=== PATIENT | female | born 1990 | race African-American/Black ===

== ENCOUNTER 2018-04-04 20:22 | Emergency (ER) | payer OTHER ==
--- NOTE | 2018-04-04 20:45 | ED Physician Documentation ---
PD HPI FEMALE - Stated complaint Stated Complaint: 9WK PREG/FEM - Chief complaint Chief Complaint: Abd Pain - History obtained from History obtained from: Patient - History of Present Illness Timing - onset: Today ( at 9 weeks gestation, she is sure of her dates who had clear fluid loss and then several episodes of vaginal bleeding tonight. No cramping. She does not know her blood type.) Review of Systems Constitutional: reports: Reviewed and negative Cardiac: reports: Reviewed and negative Respiratory: reports: Reviewed and negative PD PAST MEDICAL HISTORY - Past Medical History Past Medical History: No - Present Medications Home Medications: Ambulatory Orders Medication Instructions Recorded Confirmed Fluconazole [Diflucan] 150 mg PO ONCE #1 tablet 04/07/16 Lidocaine Ointment 5% [Xylocaine 1 applic TOP QID PRN #30 g 04/07/16 Ointment 5%] Nystatin/Triamcin 1 applic TP BID #30 oint...g. 04/07/16 [Nystatin-Triamcinolone Ointm] Pnv with Ca,No.72/Iron/FA 1 tab ORAL DAILY 04/07/16 04/07/16 [ Plus Tablet] Pyridoxine HCl [Vitamin B-6] 1 tab ORAL DAILY 04/07/16 04/07/16 - Allergies Allergies/Adverse Reactions: Allergies Allergy/AdvReac Type Severity Reaction Status Date / Time No Known Drug Allergies Allergy Verified 04/04/18 20:33 - Social History Does the pt smoke?: No Smoking Status: Never smoker Does the pt drink ETOH?: No Does the pt have substance abuse?: No - Immunizations Immunizations are current?: Yes PD ED PE NORMAL - Vitals Vital signs reviewed: Yes - General General: Alert and oriented X 3, No acute distress - Abdomen Abdomen: Normal bowel sounds, Soft, Non tender - Female Female : Other (On bedside ultrasound I do not see a live IUP.) - Neuro Neuro: Alert and oriented X 3, Normal speech Results - Vitals Vitals: Vital Signs - 24 hr 04/04/18 04/04/18 20:31 22:06 Temperature 37.0 C 36.7 C Heart Rate 82 70 Respiratory 17 18 Rate Blood Pressure 135/57 H 122/47 L O2 Saturation 100 99 Oxygen O2 Source Room air - Labs Labs: Laboratory Tests 04/04/18 04/04/18 20:50 20:50 HCG, Quant 02914.00 Blood Type A POSITIVE - Rads (name of study) OB Sono Radiology: EMP read contemporaneously, See rad report (suggestive of missed AB/ IUFD) PD MEDICAL DECISION MAKING - ED course ED course: Pt with likely AB/IUFD tonight. Counselled on this and followup. - Sepsis Event Vital Signs: Vital Signs - 24 hr 04/04/18 04/04/18 20:31 22:06 Temperature 37.0 C 36.7 C Heart Rate 82 70 Respiratory 17 18 Rate Blood Pressure 135/57 H 122/47 L O2 Saturation 100 99 Oxygen O2 Source Room air Departure - Departure Disposition: 01 Home, Self Care Clinical Impression: Incomplete miscarriage with blood clot Condition: Good Record reviewed to determine appropriate education?: Yes Instructions: ED Miscarriage Incom Comments: Follow-up with your OB on Saturday if not better, return if worsening or if you run a fever. Discharge Date/Time: 04/04/18 22:21
[2018-04-04 22:06] VITALS: BP 122/47
--- NOTE | 2018-04-04 22:31 | Ultrasound Report ---
Procedure Date: 04/04/2018 Accession Number: [id number] / [id number] Procedure: US - OB Transvaginal CPT Code: FULL RESULT: See report for first trimester OB ultrasound.
--- NOTE | 2018-04-04 22:31 | Ultrasound Report ---
Procedure Date: 04/04/2018 Accession Number: [id number] / [id number] Procedure: US - OB First Trimester CPT Code: FULL RESULT: EXAM: FIRST TRIMESTER OBSTETRIC ULTRASOUND (Less than 11 weeks) EXAM DATE: 04/04/2018 09:28 PM. CLINICAL HISTORY: Vaginal bleeding LMP: 02/04/2018. COMPARISONS: None. TECHNIQUE: Transabdominal and transvaginal ultrasound examination with static image documentation. ASSESSMENT: Gestational Sac: Likely single gestational sac within the lower uterine segment. Mean gestational sac diameter: 13 mm = 5 weeks 3 days. Possible Embryo: CRL (crown-rump length) 4 mm = 6 weeks 0 days. Cardiac activity: Absent Yolk sac: Not seen. Amniotic fluid: Not accurately assessed at this gestational age. Early placenta: Not visible at this gestational age. Other: No perigestational fluid collection demonstrated. MATERNAL STRUCTURES: Uterus: Anteverted/Retroverted. Unremarkable. Cervix: Closed. Right Ovary/Adnexa: Unremarkable. The ovary measures 2.7 x 2.8 x 2.8 cm, volume 11 cc. Left Ovary/Adnexa: Unremarkable. The ovary measures 2.7 x 2.3 x 3.4 cm, volume 11 cc. Free Fluid: Small volume. Other: None. IMPRESSION: Sonographic findings suggestive of spontaneous . There is a small cystic focus which probably represents a gestational sac within lower uterine segment. There is a likely 0.4 cm embryo with no heart tones. No suspicious adnexal abnormalities are seen. RADIA
== END 2018-04-04 22:21 | disposition home or self-care (01) ==
LOC: ED 20:22
DX: O03.4 Incomplete spontaneous abortion without complication (principal)
CPT/HCPCS: 36415; 76801; 76817; 84702; 86900; 86901; 99283

== ENCOUNTER 2018-11-02 16:33 | Emergency (ER) | payer OTHER ==
--- NOTE | 2018-11-02 18:44 | ED Physician Documentation ---
PD HPI URI - Stated complaint Stated Complaint: 20 WK PREG/SORE THROAT - Chief complaint Chief Complaint: Heent - History obtained from History obtained from: Patient - History of Present Illness Timing - onset: How many days ago (2-3) Timing duration: Days Timing details: Gradual onset Associated symptoms: Fever, Sore throat, Swollen nodes. No: Nasal congestion, Rhinorrhea, Dry cough, NVD Contributing factors: No: Sick contact Review of Systems Constitutional: reports: Fever, Chills Nose: denies: Rhinorrhea / runny nose, Congestion Throat: reports: Oral lesions / sores, Sore throat, Swollen tonsils. denies: Dental pain / toothache Respiratory: denies: Cough PD PAST MEDICAL HISTORY - Past Medical History Past Medical History: Yes Derm: Eczema - Past Surgical History Past Surgical History: Yes /CRISIS WORKER: section - Present Medications Home Medications: Ambulatory Orders Medication Instructions Recorded Confirmed Pnv,Calcium 72/Iron/Folic Acid 1 tab ORAL DAILY 04/07/16 04/07/16 [ Plus Tablet] Cephalexin [Keflex] 500 mg PO TID #18 capsule 11/02/18 Dexamethasone [Decadron] 4 mg PO DAILY #5 tablet 11/02/18 - Allergies Allergies/Adverse Reactions: Allergies Allergy/AdvReac Type Severity Reaction Status Date / Time No Known Drug Allergies Allergy Verified 11/02/18 18:32 - Social History Does the pt smoke?: No Smoking Status: Never smoker Does the pt drink ETOH?: No Does the pt have substance abuse?: No - Immunizations Immunizations are current?: Yes PD ED PE NORMAL - Vitals Vital signs reviewed: Yes - General General: Alert and oriented X 3, No acute distress, Well developed/nourished - HEENT HEENT: No: Pharynx benign (tonsils swollen with exudate. Single ulcerative gum sore anterior inside lower lip. ) - Neck Neck: Supple, no meningeal sign, Other (anterior adenopathy.) - Cardiac Cardiac: RRR, No murmur - Respiratory Respiratory: Clear bilaterally - Abdomen Abdomen: Soft, Non tender - Derm Derm: Normal color, Warm and dry, No rash Results - Vitals Vitals: Oxygen O2 Source Room air - Labs Labs: Microbiology 11/02/18 16:45 Group A Strep Throat Culture - Final Throat Beta Hemolytic Strep Group C Laboratory Tests 11/02/18 16:45 Group A Strep Rapid Negative PD MEDICAL DECISION MAKING - ED course Complexity details: considered differential (clinically apparent strep tonsillitis. ), d/w patient Departure - Departure Disposition: 01 Home, Self Care Clinical Impression: Acute tonsillitis Qualifiers: Pharyngitis/tonsillitis etiology: unspecified etiology Qualified Code(s): J03.90 - Acute tonsillitis, unspecified Record reviewed to determine appropriate education?: Yes Prescriptions: Cephalexin [Keflex] 500 mg PO TID #18 capsule Dexamethasone [Decadron] 4 mg PO DAILY #5 tablet Comments: The rapid strep test is negative but it does look suspicious for bacterial infection so we will treated with cephalexin 3 times a day for the next 6 days at least for the next 2 days until the last throat culture is resulted. If that is negative as well then we could stop the antibiotics. We did do a viral culture as well which will result in a couple of days to see if it looks herpetic (like a cold sore). Use Decadron steroid anti-inflammatory to help reduce some of the irritation of it. He can use Benadryl liquid 1-2 teaspoons swish around and swallow to help with the discomfort in the throat. Tylenol if needed for pains. Recheck if worsening over the next couple of days otherwise follow-up with your primary care. Discharge Date/Time: 11/02/18 19:28
[2018-11-02] MEDS ORDERED: DEXAMETHASONE 10 MG/ML VIAL PO STA (18:54)
[2018-11-02] MEDS ORDERED: diphenhydrAMINE ELIXIR 25 MG/10 ML UDC PO STA (18:54)
[2018-11-02] MEDS ORDERED: cephALEXin 250 MG CAPSULE PO STA (18:54)
[2018-11-02] MEDS ORDERED: ACETAMINOPHEN 325 MG TABLET PO STA (18:55)
[2018-11-02 19:28] VITALS: BP 139/79
== END 2018-11-02 19:28 | disposition home or self-care (01) ==
LOC: ED 16:33
DX: O99.511 Diseases of the respiratory system complicating pregnancy, first trimester (principal); J03.90 Acute tonsillitis, unspecified; K13.79 Other lesions of oral mucosa; Z3A.20 20 weeks gestation of pregnancy
CPT/HCPCS: 87070; 87077; 87430; 99283; A9270

== ENCOUNTER 2018-11-19 21:01 | Emergency (ER) | payer OTHER ==
--- NOTE | 2018-11-19 22:09 | ED Physician Documentation ---
History of Present Illness - Stated complaint Stated Complaint: EAR PX - Chief complaint Chief Complaint: Heent - History obtained from History obtained from: Patient - History of Present Illness Timing: How many days ago (3) Pain level max: 5 Pain level now: 4 Improved by: nothing Worsened by: palpation - Additonal information Additional information: Left ear pain and swelling for the past 2-3 days. Denies any trauma. Denies any injury. States increasing redness and swelling. No fevers. No recent illness. She is 23 weeks . Only on vitamins. Review of Systems Constitutional: denies: Fever, Chills : reports: Now EGA (23 weeks) Skin: denies: Rash PD PAST MEDICAL HISTORY - Past Medical History Past Medical History: Yes Derm: Eczema - Past Surgical History Past Surgical History: Yes /AGRICULTURAL ADVISER: section - Present Medications Home Medications: Ambulatory Orders Medication Instructions Recorded Confirmed Pnv,Calcium 72/Iron/Folic Acid 1 tab ORAL DAILY 04/07/16 11/19/18 [ Plus Tablet] - Allergies Allergies/Adverse Reactions: Allergies Allergy/AdvReac Type Severity Reaction Status Date / Time No Known Drug Allergies Allergy Verified 11/19/18 21:12 - Social History Does the pt smoke?: No Smoking Status: Never smoker Does the pt drink ETOH?: No Does the pt have substance abuse?: No - Immunizations Immunizations are current?: Yes PD ED PE NORMAL - Vitals Vital signs reviewed: Yes - General General: Alert and oriented X 3, No acute distress - HEENT HEENT: Moist mucous membranes, Other (Tympanic membranes are normal bilaterally. The ear canals are normal bilaterally. There is mild swelling and erythema to the naila area of the left ear.) - Neck Neck: Supple, no meningeal sign - Cardiac Cardiac: RRR - Respiratory Respiratory: No respiratory distress, Clear bilaterally - Abdomen Abdomen: Soft, Non tender, Non distended - Derm Derm: Warm and dry - Neuro Neuro: Alert and oriented X 3 Results - Vitals Vitals: Vital Signs - 24 hr 11/19/18 11/19/18 21:10 22:21 Temperature 36.6 C 36.3 C L Heart Rate 75 70 Respiratory 16 16 Rate Blood Pressure 131/60 H 125/62 O2 Saturation 100 98 Oxygen O2 Source Room air PD MEDICAL DECISION MAKING - ED course Complexity details: considered differential, d/w patient, d/w telesales consultant ED course: 28-year-old female presents to the emergency department with concern for left ear early perichondritis. Discussed the case with Dr. Kincaid, ENT and he will see her in the office today to determine if antibiotics are needed or not. Will hold antibiotics as she is 23 weeks currently And would need Pseudomonas coverage which would mean that she would need to be placed on a fluoroquinolone. Patient counseled regarding signs and symptoms for which I believe and urgent re-evaluation would be necessary. Patient with good understanding of and agreement to plan and is comfortable going home at this time This document was made in part using voice recognition software. While efforts are made to proofread this document, sound alike and grammatical errors may occur. Departure - Departure Disposition: 01 Home, Self Care Clinical Impression: Perichondritis Condition: Good Instructions: [facility] Follow-Up: Rivera Kincaid MD [Physician No Access] - Tomorrow Comments: I spoke with Dr. Kincaid from [facility]. He wants to see you in the office tomorrow. When you call the office in the morning, tell them that I spoke with Dr. Kincaid and he wanted you seen on 11/20/18. You can see him or 1 of his partners. We want to ensure that you do not have an infection called perichondritis, which may need certain antibiotics which we want to make sure safe for . Discharge Date/Time: 11/19/18 22:25
[2018-11-19] MEDS ORDERED: ACETAMINOPHEN 325 MG TABLET PO STA (22:17)
[2018-11-19 22:23] VITALS: BP 125/62
== END 2018-11-19 22:25 | disposition home or self-care (01) ==
LOC: ED 21:01
DX: O26.892 Other specified pregnancy related conditions, second trimester (principal); H61.002 Unspecified perichondritis of left external ear; Z3A.23 23 weeks gestation of pregnancy
CPT/HCPCS: 99283; 99284; A9270

== ENCOUNTER 2019-01-23 11:20 | Outpatient (CLI) | payer OTHER | END 2019-01-23 11:21 | disposition home or self-care (01) | LOC: LAB 11:20 | PROVIDERS: ATTEND Obstetrics & Gynecology | DX: Z36.8A Encounter for antenatal screening for other genetic defects (principal) | CPT/HCPCS: 36415; 81220; 81243; 81329; 81599; 83021; 85014; 85018; 85041 ==

== ENCOUNTER 2019-02-13 11:14 | Outpatient (CLI) | payer OTHER | END 2019-02-13 23:59 | disposition home or self-care (01) | LOC: LAB.R 11:14 | PROVIDERS: ATTEND Obstetrics & Gynecology | DX: Z34.83 Encounter for supervision of other normal pregnancy, third trimester (principal) | CPT/HCPCS: 87797 ==

== ENCOUNTER 2019-02-20 11:19 | Outpatient (CLI) | payer OTHER ==
--- NOTE | 2019-02-20 16:54 | Ultrasound Report ---
Reason: OBESITY COMPLICATING ,CHILDBIRTH,OR THE P Procedure Date: 02/20/2019 Accession Number: [id number] / [id number] Procedure: US - OB F/U or Repeat CPT Code: FULL RESULT: EXAM: FOLLOW-UP OBSTETRICAL ULTRASOUND EXAM DATE: 02/20/2019 12:19 PM. CLINICAL HISTORY: OBESITY COMPLICATING ,CHILDBIRTH,OR THE P. COMPARISON: None. TECHNIQUE: Real-time sonographic evaluation of the fetus performed by the market master. Multiple underwriting sales representative static images were saved for review. DATING: Established EGA 36 weeks 4 days with JULIANNE 03/16/2019 based on working due date. EGA 36 weeks 3 days with JULIANNE 03/17/2019 based on the current ultrasound. GENERAL EVALUATION [place] . Cardiac activity: 165 bpm. movement: Visualized. Presentation: Vertex Placenta: Anterior position. Amniotic fluid: Normal. RODGER 13 cm. MVP 3.9 cm. BIOMETRY Bi-Parietal Diameter (BPD): 8.9 cm, 36 weeks 3 days Head Circumference (HC): 33.1 cm, 37 weeks 5 days Abdominal Circumference (AC): 31.7 cm, 35 weeks 4 days Femur Length (FL): 7.0 cm, 36 weeks 0 days Estimated Weight: 2828 g, 39th Percentile for 36 weeks 4 days. IMPRESSION: 1. [place]ard live intrauterine with gestational age 36 weeks 4 days based on working obstetric due date. 2. Estimated weight is within expected limits for assigned dating. DOM
== END 2019-02-20 11:20 | disposition home or self-care (01) ==
LOC: DI 11:19
PROVIDERS: ATTEND Obstetrics & Gynecology
DX: O99.210 Obesity complicating pregnancy, unspecified trimester (principal); O99.213 Obesity complicating pregnancy, third trimester; Z3A.36 36 weeks gestation of pregnancy; O13.3 Gestational [pregnancy-induced] hypertension without significant proteinuria, third trimester
CPT/HCPCS: 36415; 76816; 82565; 82570; 84156; 84450; 85027

== ENCOUNTER 2019-02-20 12:05 | Outpatient (CLI) | payer OTHER ==
[2019-02-20 12:29] LABS: HGB - HEMOGLOBIN 12.3 g/dL (12.0-16.0); MEAN CORPUSCULAR HEMOGLOBIN 28.4 pg (27.0-31.0); MEAN CORPUSCULAR HGB CONC 34.5 g/dL (32.0-36.0); MEAN CORPUSCULAR VOLUME 82.4 fL (81.0-99.0); MEAN PLATELET VOLUME 9.8 fL (7.9-10.8); RED BLOOD COUNT 4.33 10^6/uL (4.20-5.40); RED CELL DISTRIBUTION WIDTH 12.4 % (12.0-15.0); WHITE BLOOD COUNT 8.3 x10^3/uL (4.8-10.8)
[2019-02-20 12:41] LABS: CREATININE 0.7 mg/dL (0.4-1.0)
[2019-02-20 13:51] LABS: CREATININE,URINE 138.9 mg/dL; PROTEIN/CREATININE RATIO,URINE 0.1 (<=0.2)
== END 2019-02-20 12:06 | disposition home or self-care (01) ==
LOC: LAB 12:05
PROVIDERS: ATTEND Obstetrics & Gynecology
DX: O13.3 Gestational [pregnancy-induced] hypertension without significant proteinuria, third trimester (principal)
CPT/HCPCS: 36415; 82565; 82570; 84156; 84450; 85027

== ENCOUNTER 2019-02-27 12:37 | Outpatient (CLI) | payer OTHER ==
[2019-02-27 13:18] VITALS: BP 131/85
--- NOTE | 2019-02-27 17:44 | PROCEDURE REPORT ---
- HPI Diagnosis/Indication for NST: Other (Difficult to assess heart tones in clinic) Current EDU 03/16/19 Gestation 37 Weeks and 4 Days 3 Para 1 Vital Signs Temperature 98.1 F 02/27/19 13:17 Heart Rate 97 02/27/19 13:17 Respiratory Rate 18 02/27/19 13:17 Blood Pressure 131/85 H 02/27/19 13:17 O2 Saturation 99 02/27/19 13:17 Temperature 98.1 F 02/27/19 13:17 Heart Rate 97 02/27/19 13:17 Respiratory Rate 18 02/27/19 13:17 Blood Pressure 131/85 H 02/27/19 13:17 O2 Saturation 99 02/27/19 13:17 - NST Procedure NST Procedure Start Date 02/27/19 Start Time 12:37 Stop Time 13:02 Vibroacoustic Stimulation Used No Patient States Movement Yes Mod vara 15x15 accels no decels TOCO quiet Cat I tracing - Results and Plan Findings/Impression: Cat I tracing BPs wnl Warning signs reviewed FU in clinic in one week
== END 2019-02-27 13:10 | disposition home or self-care (01) ==
LOC: WFO 12:37 → FBP 12:38 → WFO 13:10
PROVIDERS: ATTEND Obstetrics & Gynecology
DX: Z34.83 Encounter for supervision of other normal pregnancy, third trimester (principal); Z3A.37 37 weeks gestation of pregnancy
CPT/HCPCS: 59025

== ENCOUNTER 2019-03-09 15:00 | Outpatient (CLI) | payer OTHER ==
[2019-03-09 18:39] LABS: BASOPHILS % (AUTO) 0.3 %; EOSINOPHILS # (AUTO) 0.1 10^3/uL (0.0-0.7); EOSINOPHILS % (AUTO) 1.5 %; HGB - HEMOGLOBIN 11.8 g/dL (12.0-16.0); LYMPHOCYTES # (AUTO) 1.6 10^3/uL (1.5-3.5); LYMPHOCYTES % (AUTO) 21.7 %; MEAN CORPUSCULAR HEMOGLOBIN 27.3 pg (27.0-31.0); MEAN CORPUSCULAR VOLUME 82.7 fL (81.0-99.0); MEAN PLATELET VOLUME 10.3 fL (7.9-10.8); MONOCYTES # (AUTO) 0.7 10^3/uL (0.0-1.0); MONOCYTES % (AUTO) 9.6 %; NEUTROPHILS # (AUTO) 4.8 10^3/uL (1.5-6.6); NEUTROPHILS % (AUTO) 66.5 %; PLT - PLATELET COUNT 217 10^3/uL (130-450); RED BLOOD COUNT 4.33 10^6/uL (4.20-5.40); RED CELL DISTRIBUTION WIDTH 13.2 % (12.0-15.0); WHITE BLOOD COUNT 7.2 x10^3/uL (4.8-10.8)
== END 2019-03-09 23:59 | disposition home or self-care (01) ==
LOC: LAB.N 15:00
PROVIDERS: ATTEND Obstetrics & Gynecology
DX: Z01.818 Encounter for other preprocedural examination (principal); O34.211 Maternal care for low transverse scar from previous cesarean delivery
CPT/HCPCS: 36415; 85025; 86850; 86900; 86901

== ENCOUNTER 2019-03-11 05:30 | Inpatient (IN) | payer OTHER ==
[2019-03-11] MEDS ORDERED: LACTATED RINGERS 1,000 ML IV ONE ×2 (05:50→07:30)
[2019-03-11] MEDS ORDERED: SODIUM CHLORIDE FLUSH 0.9% 10 ML SYRINGE ONE (05:50)
[2019-03-11] MEDS ORDERED: LACTATED RINGERS 1,000 ML IV SCH (07:00)
--- NOTE | 2019-03-11 07:13 | ANESTHESIA ---
Pre-Anesthesia VS, & Labs - Diagnosis previous c/s - Procedure repeat c/s Height 5 ft 6 in Weight (kg) 121.109 kg Body Mass Index 37.5 - NPO >8 hours - Is Patient ?: Yes - Lab Results Lab results reviewed: Yes Home Medications and Allergies Active Medications Lactated Ringer's (Lr) 1,000 mls @ 125 mls/hr IV .Q8H ARISTIDES Pnv,Calcium 72/Iron/Folic Acid [ Plus Tablet] 1 tab ORAL DAILY 04/07/16 Allergies/Adverse Reactions: Allergies Allergy/AdvReac Type Severity Reaction Status Date / Time No Known Drug Allergies Allergy Verified 11/19/18 21:12 Anes History & Medical History - Anesthetic History Family history of Anesthesia Complications: Denies Family history of Malignant Hyperthermia: Denies - Medical History Cardiovascular: reports: None Pulmonary: reports: None Gastrointestinal: reports: None Urinary: reports: None Neuro: reports: None Musculoskeletal: reports: None Endocrine/Autoimmune: reports: None Blood Disorders: reports: None Skin: reports: Eczema Smoking Status: Former smoker (quit 9 months ago) Psychosocial: reports: No issues indicated - Surgical History Gynecologic: section - Obstetrical History : 3 Parity: 1 Events: positive: None Exam General: Alert, Oriented x3, Cooperative, No acute distress Dental: WNL Mouth Openin Fingerbreadth Neck Mobility: Normal Mallampati classification: I Thyromental Distance: greater than 6 cm Respiratory: Lungs clear, Normal breath sounds, No respiratory distress, No accessory muscle use Cardiovascular: Regular rate, Normal S1, Normal S2, No murmurs Mental/Cognitive Status: Alert/Oriented X3, Normal for patient Plan Anesthesia Type: Spinal Consent for Procedure(s) Verified and Reviewed: Yes Code Status: Attempt Resuscitation ASA classification: 2-Mild systemic disease Is this case an emergency?: No
[2019-03-11] MEDS ORDERED: OXYTOCIN/SODIUM CHLORIDE 1,000 ML IV ONE (07:30)
--- NOTE | 2019-03-11 07:36 | HISTORY & PHYSICAL EXAMINATION ---
Admit History - Visit Reason Visit Reason: Other (Scheduled repeat ) - Care: positive: [facility] Risk/History: positive: None Complications This : positive: None Smoking Status: Former smoker (quit 9 months ago) - Other Maternal History Other Maternal History: 28 yo at 39w2d here for repeat LTCS No CTX/VB/LOF. Endorses FM Meds/Allgy - Home Medications Home Medications: Ambulatory Orders Medication Instructions Recorded Confirmed Pnv,Calcium 72/Iron/Folic Acid 1 tab ORAL DAILY 04/07/16 11/19/18 [ Plus Tablet] - Allergies Allergies/Adverse Reactions: Allergies Allergy/AdvReac Type Severity Reaction Status Date / Time No Known Drug Allergies Allergy Verified 11/19/18 21:12 Review of Systems - Other Findings Other Findings: As per HPI, remaining systems are negatve. Physical - Abdominal Exam Vital Signs: 82 131/85 Contraction Frequency (min/apart): none - Monitoring Heart Rate Baseline: 135 Strip Review: positive: Category I - Presentation Presentation: positive: Vertex - Other Notes Labor Progress Note/Additional Text: Presents for scheduled repeat at 39w2d No change in health hx since time of prior exam Consent obtained Cefazolin OCTOR
[2019-03-11] MEDS ORDERED: fentaNYL 100 MCG/2 ML VIAL IVP ONE (08:53)
[2019-03-11] MEDS ORDERED: ONDANSETRON 4 MG/2 ML VIAL IVP ONE (08:53)
[2019-03-11] MEDS ORDERED: PHENYLEPHRINE 10 MG/ML VIAL IV ONE (08:53)
[2019-03-11] MEDS ORDERED: KETOROLAC 30 MG/ML VIAL IVP ONE (08:53)
[2019-03-11] MEDS ORDERED: MORPHINE PF 5 MG/10 ML AMP EP ONE (08:53)
[2019-03-11] MEDS ORDERED: ceFAZolin 1 GM VIAL IV ONE (08:53)
[2019-03-11] MEDS ORDERED: ePHEDrine 50 MG/ML VIAL IVP ONE (08:53)
[2019-03-11] MEDS ORDERED: ACETAMINOPHEN 1,000 MG/100 ML 100 ML IV ONE (09:25)
--- NOTE | 2019-03-11 09:44 | OPERATIVE REPORT ---
Operative Report - General Admit Date: 03/11/19 Planned Procedure: Repeat low transverse Pre-Op Diagnosis: IUP at 39w2d, history of prior Procedure Performed: Repeat low transverse Post Op Diagnosis: same and delivery of term gestation - Procedure Note Primary Surgeon: Lara Serna MD Secondary Surgeon: Terrell Stahl MD Anesthesia Provider: Keysha Bravo CRNA Anesthesia Technique: Spinal Pathology: Placenta for routine discard IV Fluids (mL): 1,100 (see Anesthesia record) Estimated Blood Loss (mL): 500 Urine Output (mL): 500 Indications: Ms Alonzo is a 28 yo at 39w2d with a history of prior . She presents for elective repeat LTCS Findings: Female fetus in vertex position. Weight and Apgars pending. Normal uterus. Tubes and ovaries palpate normal. Complications: none - Other Other Information/Narrative: The patient was taken to the operating room where spinal anesthesia was administered without difficulty. The patient was prepped and draped in the usual sterile fashion in the dorsal supine position with a leftward tilt. A Pfannenstiel skin incision was made with the scalpel and carried through to the underlying layer of fascia using the Bovie. The left lateral aspect of the incision had an area of raised scar tissue that was dissected from the incision. The fascia was incised in the midline and extended laterally using Plummer scissors. Sherwin clamps were used to elevate the superior aspect of the fascial incision, which was elevated, and the underlying rectus muscles were dissected off bluntly and using Plummer scissors. Attention was then turned to the inferior aspect of the fascial incision, which in similar fashion was grasped with Sherwin clamps, elevated, and the underlying rectus muscles were dissected off bluntly and using the Bovie. The rectus muscles were dissected in the midline. The peritoneum was identified and entered bluntly; this incision was extended superiorly and inferiorly with good visualization of the bladder. The bladder blade was inserted. The vesicouterine peritoneum was identified. Bladder flap was not created. The lower uterine segment was incised in a transverse fashion using the scalpel and extended using manual traction. Clear fluid was noted. The infant was subsequently delivered using a Kiwi vacuum due to anteflexed head and difficulty in delivering the infant's head without the Kiwi. The cord was clamped and cut. The infant was subsequently handed to the awaiting nursery nurse. The placenta was delivered spontaneously intact with a three-vessel cord noted. The uterus was not exteriorized. It was cleared of all clots and debris. The uterine incision was repaired in 2 layers using 0- Vicryl in a runnng locked suture followed with an imbricating layer. Hemostasis was visualized. The tubes and ovaries were palpated. The paracolic gutters were cleared of clots and debris with irrigation and clearance with sloppy wet lap sponges. The uterine incision was reexamined and it was noted to be hemostatic. The peritoneum was closed wth a running suture usng 2-0 Vicryl. The rectus muscles were reapproximated in the midline using 2-0 Chromic using an interrupted figure of 8 sutures. The fascia was closed with 0 Vicryl suture x2, meeting in the midline. The subcutaneous layer was closed with 2-0 Chromic, and the skin was closed with running subcuticular suture using 4-0 Monocryl. . Sponge, lap, and instrument counts were correct x2. The patient was stable at the completion of the procedure and was subsequently transferred to the recovery room in stable condition. Dr. Stahl assisted with retraction, suturing, and closure of the fascial layer.
[2019-03-11] MEDS ORDERED: OXYTOCIN/DEXTROSE 5 % 30 UNIT/500 ML BAG IV PRN (10:04)
[2019-03-11] MEDS ORDERED: ONDANSETRON 4 MG/2 ML VIAL IVP PRN (10:04)
[2019-03-11] MEDS ORDERED: ONDANSETRON ODT 4 MG TABLET TL PRN (10:04)
[2019-03-11] MEDS ORDERED: SODIUM CHLORIDE FLUSH 0.9% 10 ML SYRINGE IVP PRN (10:04)
[2019-03-11] MEDS ORDERED: METHYLERGONOVINE 0.2 MG/ML AMP IM PRN (10:04)
[2019-03-11] MEDS ORDERED: CARBOPROST TROMETHAMINE 250 MCG/ML AMP IM ONE (10:04)
[2019-03-11] MEDS: ACETAMINOPHEN 500 MG TABLET PO SCH ×2 (11:27→18:51)
[2019-03-11] MEDS: LACTATED RINGERS 1,000 ML IV SCH ×2 (11:28→13:15)
[2019-03-11] MEDS: oxyCODONE 5 MG TABLET PO PRN ×3 (11:59→20:03)
[2019-03-11] MEDS: IBUPROFEN 600 MG TABLET PO SCH ×2 (15:03→22:07)
[2019-03-11] MEDS: SODIUM CHLORIDE FLUSH 0.9% 10 ML SYRINGE IVP SCH ×2 (16:42→22:18)
[2019-03-11] MEDS: SIMETHICONE CHEW 80 MG TABLET PO SCH ×2 (16:46→18:51)
[2019-03-11] MEDS: diphenhydrAMINE 25 MG CAPSULE PO PRN (20:03)
[2019-03-11] MEDS ORDERED: NALBUPHINE 10 MG/ML AMP IVP ONE (21:53)
[2019-03-11] MEDS: DOCUSATE SODIUM 100 MG CAPSULE PO SCH (22:07)
[2019-03-11] MEDS ORDERED: NALBUPHINE 10 MG/ML AMP ONE (22:36)
[2019-03-12] MEDS: oxyCODONE 5 MG TABLET PO PRN ×6 (00:45→22:10)
[2019-03-12] MEDS: diphenhydrAMINE 25 MG CAPSULE PO PRN (03:44)
[2019-03-12] MEDS: ACETAMINOPHEN 500 MG TABLET PO SCH ×3 (03:44→18:56)
[2019-03-12] MEDS: IBUPROFEN 600 MG TABLET PO SCH ×3 (04:23→18:57)
[2019-03-12 05:59] LABS: BASOPHILS % (AUTO) 0.3 %; EOSINOPHILS # (AUTO) 0.1 10^3/uL (0.0-0.7); EOSINOPHILS % (AUTO) 1.1 %; HGB - HEMOGLOBIN 10.3 g/dL (12.0-16.0); LYMPHOCYTES # (AUTO) 1.9 10^3/uL (1.5-3.5); LYMPHOCYTES % (AUTO) 16.7 %; MEAN CORPUSCULAR HEMOGLOBIN 27.7 pg (27.0-31.0); MEAN CORPUSCULAR HGB CONC 33.3 g/dL (32.0-36.0); MEAN CORPUSCULAR VOLUME 83.1 fL (81.0-99.0); MEAN PLATELET VOLUME 9.9 fL (7.9-10.8); MONOCYTES # (AUTO) 1.1 10^3/uL (0.0-1.0); MONOCYTES % (AUTO) 9.5 %; NEUTROPHILS # (AUTO) 8.2 10^3/uL (1.5-6.6); NEUTROPHILS % (AUTO) 71.9 %; PLT - PLATELET COUNT 191 10^3/uL (130-450); RED BLOOD COUNT 3.72 10^6/uL (4.20-5.40); RED CELL DISTRIBUTION WIDTH 12.9 % (12.0-15.0); WHITE BLOOD COUNT 11.4 x10^3/uL (4.8-10.8)
[2019-03-12] MEDS: SIMETHICONE CHEW 80 MG TABLET PO SCH ×3 (08:16→18:10)
[2019-03-12] MEDS: DOCUSATE SODIUM 100 MG CAPSULE PO SCH ×2 (08:16→20:53)
--- NOTE | 2019-03-12 12:35 | PROVIDER PROGRESS NOTE ---
Subjective - Prog Note Date Prog Note Date: 03/12/19 Prog Note Time: 09:30 - Subjective Pt reports feeling: Improved (Doing well. Up and ambulating. Tolerating po. Pain well managed. BF going well) Objective - Vital Signs/Intake & Output Vital Signs: Vital Signs x48h Temp Pulse Resp BP Pulse Ox 03/12/19 09:20 98.1 F 87 16 143/71 H 97 Intake & Output: Intake & Output 03/09/19 03/10/19 03/11/19 03/12/19 23:59 23:59 23:59 23:59 Intake Total 1850 Output Total 2795 2400 Balance -945 -2400 - Objective General Appearance: positive: No acute distress Respiratory: positive: Chest non-tender, No respiratory distress Cardiovascular: positive: Regular rate & rhythm Abdomen: positive: Non-tender, Other (Incision line CDI with steris in place FF below umbi) Skin: positive: Color nml Extremities: positive: Non-tender, Other (SCDs in place) Neurologic/Psychiatric: positive: Oriented x3 - Lab Results Fish Bones: 03/12/19 05:32 Other Labs: Lab Results x24hrs 03/12/19 Range/Units 05:32 WBC 11.4 H (4.8-10.8) x10^3/uL RBC 3.72 L (4.20-5.40) 10^6/uL Hgb 10.3 L (12.0-16.0) g/dL Hct 30.9 L (37.0-47.0) % MCV 83.1 (81.0-99.0) fL MCH 27.7 (27.0-31.0) pg MCHC 33.3 (32.0-36.0) g/dL RDW 12.9 (12.0-15.0) % Plt Count 191 (130-450) 10^3/uL MPV 9.9 (7.9-10.8) fL Neut # (Auto) 8.2 H (1.5-6.6) 10^3/uL Lymph # (Auto) 1.9 (1.5-3.5) 10^3/uL [place] # (Auto) 1.1 H (0.0-1.0) 10^3/uL Eos # (Auto) 0.1 (0.0-0.7) 10^3/uL Baso # (Auto) 0.0 (0.0-0.1) 10^3/uL Absolute Nucleated RBC 0.00 x10^3/uL Nucleated RBC % 0.0 /100WBC Assessment/Plan - Problem List (1) Delivery by section of full-term infant Impression: Doing well post op Up and ambulating Tolerating po Pain well managed Voiding Anticipate DC home tomorrow
[2019-03-13] MEDS: IBUPROFEN 600 MG TABLET PO SCH ×2 (00:56→06:53)
[2019-03-13] MEDS: ACETAMINOPHEN 500 MG TABLET PO SCH ×2 (02:34→12:08)
[2019-03-13] MEDS: oxyCODONE 5 MG TABLET PO PRN ×3 (02:34→12:08)
[2019-03-13] MEDS: SIMETHICONE CHEW 80 MG TABLET PO SCH (08:39)
[2019-03-13] MEDS: DOCUSATE SODIUM 100 MG CAPSULE PO SCH (08:39)
[2019-03-13 08:59] VITALS: BP 146/85
--- NOTE | 2019-03-13 11:38 | PROVIDER PROGRESS NOTE ---
Subjective - Prog Note Date Prog Note Date: 03/13/19 Prog Note Time: 11:34 - Subjective Subjective: Doing well. Up and ambulating. Tolerating po. Ambulating, voiding. Ready for discharge. Objective - Vital Signs/Intake & Output Vital Signs: Vital Signs x48h Temp Pulse Resp BP Pulse Ox 03/13/19 08:58 98.1 F 94 16 146/85 H 99 03/13/19 04:33 97.7 F 87 18 128/54 L 99 Intake & Output: Intake & Output 03/10/19 03/11/19 03/12/19 03/13/19 23:59 23:59 23:59 23:59 Intake Total 1850 1740 240 Output Total 2795 2400 Balance -945 -660 240 - Objective General Appearance: positive: No acute distress Eyes Bilateral: positive: Normal inspection Respiratory: positive: Chest non-tender, No respiratory distress Cardiovascular: positive: Regular rate & rhythm Abdomen: positive: Other (Incision CDI and intact. FF below umbi) Back: positive: Nml inspection Skin: positive: Color nml Extremities: positive: Non-tender Neurologic/Psychiatric: positive: Oriented x3 - Lab Results Fish Bones: 03/12/19 05:32 Assessment/Plan - Problem List (2) Delivery by section Impression: Meeting goals for discharge Discharge instructions given DC to home
--- NOTE | 2019-03-13 16:35 | DISCHARGE SUMMARY ---
"Discharge Summary Admit Date: 03/11/01 Discharge Date: 03/13/19 Discharging Provider: MD Kareem Code Status: Attempt Resuscitation Condition at Discharge: Good - DIAGNOSES Admission Diagnoses: IUP at 39w2d with history of prior Discharge Diagnoses with Status of Each Condition: Same and delivery of term gestation via - HPI History of Present Illness: Ms Alonzo is a 28 at 39w2d here for repeat low transverse . uncomlicated, patient known to carry sickle cell trait. No CTX/VB/LOF. - CONSULTS | PROCEDURES Procedures: Repeat low transverse - HOSPITAL COURSE Hospital Course: Ms Alonzo was admtted 03/11/19 for scheduled repeat low trasnverse . Procedure was well tolerated and without complication. Uncomplicated course. Meetng goals for discharge by POD#2 and discharged to home. - ALLERGIES Allergies/Adverse Reactions: Allergies Allergy/AdvReac Type Severity Reaction Status Date / Time No Known Drug Allergies Allergy Verified 11/19/18 21:12 - MEDICATIONS Home Medications: Ambulatory Orders Medication Instructions Recorded Confirmed Pnv,Calcium 72/Iron/Folic Acid 1 tab ORAL DAILY 04/07/16 11/19/18 [ Plus Tablet] - PHYSICAL EXAM AT DISCHARGE General Appearance: positive: No acute distress Eyes Bilateral: positive: Normal inspection Neck: positive: Nml inspection Respiratory: positive: Chest non-tender, No respiratory distress, Breath sounds nml Cardiovascular: positive: Regular rate & rhythm Abdomen: positive: Non-tender, Other (Incision line CDI with steristrips in place. FF below umbilicus) Extremities: positive: Non-tender, Nml appearance Neurologic/Psychiatric: positive: Oriented x3 - LABS Result Diagrams: 03/12/19 05:32 - FOLLOW UP Follow Up: FU in 1-2 weeks for incision check and 6 weeks for check Routine DC instructions given Discharge medications: Oxycodone 5 mg tablets #24 No RF Ibuprofen 600 mg po Q6H prn pain #90, 1 RF Acetaminophen 325 mg -650 mg po Q4H PRN pain, #90, 1 RF Docusate 100-200 mg po BID prn constipation - TIME SPENT Time Spent in Discharge (Minutes): 30"
== END 2019-03-13 12:30 | disposition home or self-care (01) | DRG 788 ==
LOC: FBP 05:30
PROVIDERS: ADMIT Obstetrics & Gynecology; ATTEND Obstetrics & Gynecology
PROC: 10D00Z1 Extraction of Products of Conception, Low, Open Approach (ICD-10-PCS; principal; 2019-03-11 07:30)
DX: O34.211 Maternal care for low transverse scar from previous cesarean delivery (principal); N85.8 Other specified noninflammatory disorders of uterus; O99.02 Anemia complicating childbirth; D57.3 Sickle-cell trait; Z3A.39 39 weeks gestation of pregnancy; Z37.0 Single live birth; Z87.891 Personal history of nicotine dependence
CPT/HCPCS: 36415; 85025; A9270; J0131; J2300; J7120; Q0162